=== PATIENT | male | born 1965 | race Caucasian/White ===

== ENCOUNTER → 2022-01-13 | Emergency (ER) | payer SELFPAY ==
[~2022-01-13] VITALS: Ht 188 cm; Wt 176.8 kg
[2022-01-13 18:28] VITALS: BP 106/82
--- NOTE | 2022-01-13 18:49 | PHYS DOC ---
Adult General Chief Complaint Chief Complaint: CHEST PAIN HPI HPI Pt is a 56 y/o male presenting to the ED via EMS c/o neck and abd pain. Pt reports throbbing in his neck onset about 1700 today that he has had before and believes it is due to his blood pressure being low. Pt also c/o abd pain due to hernia and SOB at baseline. Pt has hx of COPD, CHF, and recent respiratory infection. Pt states they recently changed his Lasix rx but that he has not been taking any of his meds for the last 2 days. Pt states that SNF staff told him they would not give him any of his meds unless he came to the ED. No further complaints at this time. (CECILIO RAMÍREZ MD) Review of Systems Review of Systems Constitutional: Denies fever or chills Eyes: Denies change in visual acuity, redness, or eye pain HENT: See HPI. Denies nasal congestion or sore throat Respiratory: See HPI. Denies cough Cardiovascular: No additional information not addressed in HPI GI: See HPI. Denies nausea, vomiting, bloody stools or diarrhea : Denies dysuria or hematuria Musculoskeletal: Denies back pain or joint pain Integument: Denies rash or skin lesions Neurologic: Denies headache, focal weakness or sensory changes All other systems were reviewed and found to be within normal limits, except as documented in this note. (CECILIO RAMÍREZ MD) Allergies Allergies Allergies Coded Allergies Type Severity Reaction Last Updated Verified No Known Drug Allergies 01/13/22 No (CECILIO RAMÍREZ MD) Physical Exam Physical Exam Constitutional: Morbidly obese, well nourished, no acute distress, non-toxic appearance. HENT: Normocephalic, atraumatic, bilateral external ears normal, oropharynx moist, no oral exudates, nose normal. Eyes: PERRLA, EOMI, conjunctiva normal, no discharge. Neck: Normal range of motion, no tenderness, supple, no stridor. Cardiovascular: Sinus tachycardia, no murmur Lungs & Thorax: Expiratory wheezes and rhonchi. Abdomen: Morbidly obese. Ventral hernia. Bowel sounds normal, soft, no tenderness. Skin: Warm, dry, no erythema, no rash. Back: No tenderness, no CVA tenderness. Extremities: 3+ edema BLE. No tenderness, no cyanosis, no clubbing, ROM intact, Neurologic: Alert and oriented X 3, normal motor function, normal sensory function, no focal deficits noted. Psychologic: Affect normal, judgement normal, mood normal. (CECILIO RAMÍREZ MD) EKG EKG [] (CECILIO RAMÍREZ MD) Radiology/Procedures Radiology/Procedures [] (CECILIO RAMÍREZ MD) Heart Score C/O Chest Pain: No Risk Factors: Risk Factors: DM, Current or recent (<one month) smoker, HTN, HLP, family history of CAD, obesity. Risk Scores: Risk Factors: DM, Current or recent (<one month) smoker, HTN, HLP, family history of CAD, obesity. (CECILIO RAMÍREZ MD) Course & Med Decision Making Course & Med Decision Making Pertinent Labs and Imaging studies reviewed. (See chart for details) Portions of this note were transcribed by dilcia Llanos. I, Dr. Ramírez, personally performed the history, physical exam and medical decision making; and confirmed the accuracy of the information in the transcribed note. 1843: The pt was seen and evaluated and the H&P obtained. The results of the physical exam were discussed with the pt. Pulse Oximetry Interpretation: O2 Saturation: 100% Oxygen Delivery: Room Air Interpretation: No hypoxia at this time Rhythm Strip Interpretation: Sinus tachycardia Ventricular Rate: 108 1900: Pt care was transferred to Dr. Elias pending lab and imaging results. Reviewed pts presentation and all results and findings up to this point with Dr. Elias. Pt was in stable condition upon transfer of care. MDM: Pt is a 56 y/o male presenting to the ED via EMS c/o neck and abd pain. Pt reports throbbing in his neck that he has had before and believes it is due to his blood pressure being low. Pt also c/o abd pain due to hernia. Pt has hx of COPD, CHF, and recent respiratory infection. Pt states they recently changed his Lasix rx but that he has not been taking any of his meds for the last 2 days. Pt states that SNF staff told him they would not give him any of his meds unless he came to the ED. No further complaints at this time. (CECILIO RAMÍREZ MD) Course & Med Decision Making Patient care handed off to me at checkout, however patient left AMA before I had a chance to go and and evaluate him. Nursing staff gave him risks including significant illness, increasing pain, worsening symptoms, disability and . Patient verbalized understanding of these per nurse and decided to leave anyway. (GREY ELIAS MD) Departure Departure: Impression: Primary Impression: Chest pain Additional Impression: Dyspnea Disposition: 30 STILL A PATIENT Condition: GUARDED Problem Qualifiers CECILIO RAMÍREZ MD Jan 13, 2022 18:49 GREY ELIAS MD Jan 13, 2022 22:41
[2022-01-13 19:42] LABS: BASO % 1 % (0-3); CALCIUM 7.8 mg/dL (8.5-10.1); CREATININE 0.9 mg/dL (0.7-1.3); EOS # 0.1 x10^3/uL (0.0-0.7); EOS % 3 % (0-3); GFR 87.3; HEMATOCRIT 26.7 % (39.0-53.0); HEMOGLOBIN 9.1 g/dL (13.0-17.5); LYMPH # 0.8 x10^3/uL (1.0-4.8); LYMPH % 21 % (24-48); MEAN CORPUSCULAR HEMOGLOBIN 37 pg (25-35); MEAN CORPUSCULAR HGB CONC 34 g/dL (31-37); MEAN CORPUSCULAR VOLUME 109 fL (79-100); MONO # 0.6 x10^3/uL (0.0-1.1); MONO % 17 % (0-9); NEUT # 2.1 x10^3uL (1.8-7.7); NEUT % 59 % (31-73); PLATELET COUNT 79 x10^3/uL (140-400); POTASSIUM 4.3 mmol/L (3.5-5.1); RED BLOOD COUNT 2.44 x10^6/uL (4.30-5.70); RED CELL DISTRIBUTION WIDTH 16.2 % (11.5-14.5); WHITE BLOOD COUNT 3.7 x10^3/uL (4.0-11.0)
--- NOTE | 2022-01-13 19:50 | EKG ---
[address] [address] Test Date: 2022-01-13 Test Time: 18:31:13 Pat Name: LEAH BLANDON Department: Room: Gender: M Transportation Maintenance Specialist: : 1965 Requested By: CECILIO CHACON Order Number: [id number] Reading MD: Jose Miguel Diego Measurements Intervals [place] Rate: 107 P: 49 LA: 186 QRS: 51 QRSD: 84 T: 43 QT: 322 QTc: 435 Interpretive Statements SINUS TACHYCARDIA Electronically Signed On 01-14-2022 14:55:40 CDT by Jose Miguel Diego
[2022-01-13 19:52] LABS: CLARITY,URINE TURBID; COLOR,URINE AMBER; GLUCOSE,URINE NEG (NEG)
[2022-01-13 19:53] LABS: BACTERIA,URINE MOD /HPF (0-FEW); NITRITE,URINE POS (NEG); RBC,URINE RARE /HPF (0-2); SQUAMOUS EPITHELIAL CELL,UR FEW /LPF; UROBILINOGEN,URINE 0.2 mg/dL (0.2 mg/dL)
[2022-01-13 19:54] LABS: AMORPHOUS SEDIMENT,UR PRESENT /HPF
[2022-01-13 19:55] LABS: ALBUMIN 1.9 g/dL (3.4-5.0); ALBUMIN/GLOBULIN RATIO 0.4 (1.0-1.7); TOTAL BILIRUBIN 1.4 mg/dL (0.2-1.0); TOTAL PROTEIN 6.7 g/dL (6.4-8.2)
== END | disposition still patient (30) ==
LOC: ER 18:17
DX: R07.9 Chest pain, unspecified (principal); R06.00 Dyspnea, unspecified; M54.2 Cervicalgia; R10.9 Unspecified abdominal pain; J44.9 Chronic obstructive pulmonary disease, unspecified; I50.9 Heart failure, unspecified; E66.01 Morbid (severe) obesity due to excess calories; Z68.43 Body mass index [BMI] 50.0-59.9, adult
CPT/HCPCS: 36415; 80053; 81001; 83880; 84484; 85025; 87077; 87086; 87186; 93005; 99284

== ENCOUNTER 2022-02-25 13:30 | Emergency (ER) | payer OTHER ==
[~2022-02-25] VITALS: Ht 190.5 cm; Wt 182.4 kg
[~2022-02-25 13:30] MED LIST: ACET650S19 PO; ALBU2.5V8 IH; ASPI-630 PO; CALC-660 PO; DICL100G28 TP; FURO80TA72 PO; GUAI-519 PO; IPRA3AMP29 NEB; LACT10SO2 PO; LACT10SO26 PO; LORA0.5T21 PO; OXYC5TAB2 PO; PANT40TA6 PO; POTA500T5 PO; RIFA550T4 PO; SPIR100T4 PO; TORS100T3 PO
--- NOTE | 2022-02-25 13:57 | PHYS DOC ---
Past History Additional Past Medical Histor: CHF. cirrhosis of liver. Past Surgical History: No Surgical History Alcohol Use: None Adult General Chief Complaint Chief Complaint: CHEST PAIN HPI HPI Patient presents via EMS with complaint of chest pain. Patient reports pain to his anterior chest much worse with deep breathing and coughing. Patient reports he just got out of [facility] after prolonged admission there over the last 3+ weeks. Patient states he was admitted for congestive heart failure and diuresed over many days. Patient states he did have some level of chest pain while he was inpatient but states is much worse today. On arrival the patient is requesting Dilaudid for this pain. Patient reports feeling short of breath, denies diaphoresis, no palpitations. Review of Systems Review of Systems Constitutional: Denies fever or chills [] Eyes: Denies change in visual acuity, redness, or eye pain [] HENT: Denies nasal congestion or sore throat [] Respiratory: Denies cough positive shortness of breath Cardiovascular: Chest pain, no palpitations no diaphoresis GI: Denies abdominal pain, nausea, vomiting, bloody stools or diarrhea [] : Denies dysuria or hematuria [] Musculoskeletal: Denies back pain or joint pain [] Integument: Denies rash or skin lesions [] Neurologic: Denies headache, focal weakness or sensory changes [] Endocrine: Denies polyuria or polydipsia [] All other systems were reviewed and found to be within normal limits, except as documented in this note. Current Medications Current Medications Current Medications Medications (Trade) Dose Ordered Sig/Francisca Start Time Stop Time Status Last Admin Dose Admin Morphine Sulfate (Morphine 4mg Syringe) 4 mg PRN Q15MIN PRN 02/25/22 14:00 02/26/22 13:59 UNV Allergies Allergies Allergies Coded Allergies Type Severity Reaction Last Updated Verified quetiapine Allergy Unknown 01/19/22 Yes Physical Exam Physical Exam Constitutional: Well developed, well nourished, no acute distress, non-toxic appearance. [] HENT: Normocephalic, atraumatic, bilateral external ears normal, oropharynx moist, no oral exudates, nose normal. [] Eyes: PERRLA, EOMI, conjunctiva normal, no discharge. [] Neck: Normal range of motion, no tenderness, supple, no stridor. [] Cardiovascular:Heart rate regular rhythm, no murmur [] Lungs & Thorax: Bilateral breath sounds clear to auscultation [] Abdomen: Bowel sounds normal, soft, no tenderness, no masses, no pulsatile hadley s. [] Skin: Warm, dry, no erythema, no rash. [] Back: No tenderness, no CVA tenderness. [] Extremities: No tenderness, no cyanosis, no clubbing, ROM intact, no edema. [] Neurologic: Alert and oriented X 3, normal motor function, normal sensory function, no focal deficits noted. [] Psychologic: Affect normal, judgement normal, mood normal. [] EKG EKG [] ECC physician read, normal sinus rhythm, normal NC interval, none widened QRS, no ST changes Radiology/Procedures Radiology/Procedures [] Heart Score C/O Chest Pain: Yes HEART Score for Chest Pain: HEART Score for Chest Pain Response (Comments) Value History Slighlty/Non-Suspicious 0 ECG Normal 0 Age >45 - < 65 1 Risk Factors >3 Risk Factors or Hx CAD 2 Troponin < Normal Limit 0 Total 3 Risk Factors: Risk Factors: DM, Current or recent (<one month) smoker, HTN, HLP, family history of CAD, obesity. Risk Scores: Risk Factors: DM, Current or recent (<one month) smoker, HTN, HLP, family history of CAD, obesity. Course & Med Decision Making Course & Med Decision Making Patient will get full labs and work-up in the emergency department, initial EKG with no specific ST changes. Pain is somewhat reproducible in the anterior c hest wall. We will attempt to get records from [facility] for recent admission and evaluation. Laboratory Tests Test 02/25/22 14:00 02/25/22 14:50 White Blood Count 3.0 x10^3/uL (4.0-11.0) L Red Blood Count 2.20 x10^6/uL (4.30-5.70) L Hemoglobin 8.3 g/dL (13.0-17.5) L Hematocrit 24.6 % (39.0-53.0) L Mean Corpuscular Volume 112 fL (79-100) H Mean Corpuscular Hemoglobin 38 pg (25-35) H Mean Corpuscular Hemoglobin Concent 34 g/dL (31-37) Red Cell Distribution Width 19.7 % (11.5-14.5) H Platelet Count 83 x10^3/uL (140-400) L Neutrophils (%) (Auto) 76 % (31-73) H Lymphocytes (%) (Auto) 12 % (24-48) L Monocytes (%) (Auto) 9 % (0-9) Eosinophils (%) (Auto) 3 % (0-3) Basophils (%) (Auto) 1 % (0-3) Neutrophils # (Auto) 2.3 x10^3uL (1.8-7.7) Lymphocytes # (Auto) 0.4 x10^3/uL (1.0-4.8) L Monocytes # (Auto) 0.3 x10^3/uL (0.0-1.1) Eosinophils # (Auto) 0.1 x10^3/uL (0.0-0.7) Basophils # (Auto) 0.0 x10^3/uL (0.0-0.2) Troponin I High Sensitivity 12 ng/L (4-75) Sodium Level 135 mmol/L (136-145) L Potassium Level 4.1 mmol/L (3.5-5.1) Chloride Level 98 mmol/L (98-107) Carbon Dioxide Level 34 mmol/L (21-32) H Anion Gap 3 (6-14) L Blood Urea Nitrogen 22 mg/dL (8-26) Creatinine 1.0 mg/dL (0.7-1.3) Estimated GFR (Cockcroft-Gault) 77.3 BUN/Creatinine Ratio 22 (6-20) H Glucose Level 99 mg/dL (70-99) Calcium Level 8.8 mg/dL (8.5-10.1) Total Bilirubin 1.8 mg/dL (0.2-1.0) H Direct Bilirubin 0.8 mg/dL (0.0-0.2) H Aspartate Amino Transf (AST/SGOT) 62 U/L (15-37) H Alanine Aminotransferase (ALT/SGPT) 36 U/L (16-63) Alkaline Phosphatase 134 U/L (46-116) H Total Protein 7.6 g/dL (6.4-8.2) Albumin 2.5 g/dL (3.4-5.0) L Albumin/Globulin Ratio 0.5 (1.0-1.7) L Lipase 88 U/L (73-393) Active Scripts Medications Dose Route/Sig Max Daily Dose Days Date Category Lactulose 10 Gm/15 Ml Solution 30 Ml PO QID 01/22/22 Rx Torsemide 100 Mg Tablet 1 Tab PO DAILY 30 01/22/22 Rx Ventolin Hfa Inhaler (Albuterol Sulfate) 18 Gm Hfa.aer.ad 1 Puff IH PRN Q4HRS PRN 01/19/22 Reported Spironolactone 100 Mg Tablet 1 Tab PO DAILY 01/19/22 Reported Xifaxan (Rifaximin) 550 Mg Tablet 1 Tab PO BID 10 01/19/22 Reported Potassium Gluconate 500 Mg Tablet 595 Mg PO BID 01/19/22 Reported Pantoprazole Sodium 40 Mg Tablet.dr 1 Tab PO DAILY 01/19/22 Reported Oyster Shell 500Mg-Vit D3 5Mcg (Calcium Carbonate/Vitamin D3) 1 Each Tablet 1 Tab PO BID 30 01/19/22 Reported Oxycodone HCl 5 Mg Tablet 10 Mg PO PRN Q4HRS PRN 01/19/22 Reported Duoneb 0.5-3(2.5) Mg/3 Ml (Albuterol/Ipratropium) 3 Ml Ampul.neb 3 Ml NEB QID 01/19/22 Reported Ofelia-Tussin (Guaifenesin) 100 Mg/5 Ml Liquid 300 Mg PO PRN Q4HRS PRN 01/19/22 Reported Diclofenac Sodium 100 Gm Gel..gram. 1 Jeremy TP PRN Q6HRS PRN 21 01/19/22 Reported Ativan (Lorazepam) 0.5 Mg Tablet 0.5 Mg PO PRN BID PRN 01/19/22 Reported Aspirin 81 Mg Tab.chew 81 Mg PO DAILY 01/19/22 Reported Vital Signs Date Time Temp Pulse Resp B/P (MAP) Pulse Ox O2 Delivery O2 Flow Rate FiO2 02/25/22 14:17 98.2 88 20 94/58 (70) 93 Nasal Cannula 4.0 Vital Signs Date Time Temp Pulse Resp B/P (MAP) Pulse Ox O2 Delivery O2 Flow Rate FiO2 02/25/22 15:20 83 18 106/52 (70) 96 4.0 02/25/22 14:17 98.2 88 20 94/58 (70) 93 Nasal Cannula 4.0 Vital Signs Date Time Temp Pulse Resp B/P (MAP) Pulse Ox O2 Delivery O2 Flow Rate FiO2 02/25/22 15:20 83 18 106/52 (70) 96 4.0 02/25/22 14:17 98.2 Nasal Cannula Laboratory Tests Test 02/25/22 14:00 02/25/22 14:50 White Blood Count 3.0 x10^3/uL Red Blood Count 2.20 x10^6/uL Hemoglobin 8.3 g/dL Hematocrit 24.6 % Mean Corpuscular Volume 112 fL Mean Corpuscular Hemoglobin 38 pg Mean Corpuscular Hemoglobin Concent 34 g/dL Red Cell Distribution Width 19.7 % Platelet Count 83 x10^3/uL Neutrophils (%) (Auto) 76 % Lymphocytes (%) (Auto) 12 % Monocytes (%) (Auto) 9 % Eosinophils (%) (Auto) 3 % Basophils (%) (Auto) 1 % Neutrophils # (Auto) 2.3 x10^3uL Lymphocytes # (Auto) 0.4 x10^3/uL Monocytes # (Auto) 0.3 x10^3/uL Eosinophils # (Auto) 0.1 x10^3/uL Basophils # (Auto) 0.0 x10^3/uL Troponin I High Sensitivity 12 ng/L Sodium Level 135 mmol/L Potassium Level 4.1 mmol/L Chloride Level 98 mmol/L Carbon Dioxide Level 34 mmol/L Anion Gap 3 Blood Urea Nitrogen 22 mg/dL Creatinine 1.0 mg/dL Estimated GFR (Cockcroft-Gault) 77.3 BUN/Creatinine Ratio 22 Glucose Level 99 mg/dL Calcium Level 8.8 mg/dL Total Bilirubin 1.8 mg/dL Direct Bilirubin 0.8 mg/dL Aspartate Amino Transf (AST/SGOT) 62 U/L Alanine Aminotransferase (ALT/SGPT) 36 U/L Alkaline Phosphatase 134 U/L Total Protein 7.6 g/dL Albumin 2.5 g/dL Albumin/Globulin Ratio 0.5 Lipase 88 U/L Current Medications Medications (Trade) Dose Ordered Sig/Francisca Route PRN Reason Start Time Stop Time Status Last Admin Dose Admin Morphine Sulfate (Morphine 4mg Syringe) 4 mg PRN Q15MIN PRN IV/SQ PAIN GREATER THAN 3/10 02/25/22 14:00 02/26/22 13:59 02/25/22 15:31 1615-patient with work-up in the emergency department relatively reassuring. Patient with EKG with no ST changes. Patient chest x-ray with some evidence of ongoing pulmonary edema. Recent prolonged admission with significant diuresis. Patient at baseline oxygen needs while in the emergency department. Patient with initial cardiac enzymes not elevated. Patient encouraged for multiple sets of cardiac enzymes, but patient states he feels at his baseline and is anxious for discharge home. Patient states his issue today was that he has prescriptions had not been sent to his home yet from the [facility], and the pain medications he was prescribed at discharge from [facility] was not available. Patient counseled that we have not been able to fully rule out any ongoing issue as we do not have serial cardiac enzymes. Patient overall states he feels much better and would just like to be discharged home. Patient will be discharged home with close outpatient follow-up. Patient does have follow-up with cardiology already scheduled after admission at . Return precautions discussed Dragon Disclaimer Dragon Disclaimer This electronic medical record was generated, in whole or in part, using a voice recognition dictation system. Departure Departure: Impression: Primary Impression: Chest pain Additional Impression: Dyspnea Disposition: 01 HOME / SELF CARE / HOMELESS Condition: STABLE Referrals: ALBERTO MICHAEL MD (PCP) Patient Instructions: Chest Pain (Nonspecific) Problem Qualifiers OLMAN DANIELS MD February 25, 2022 13:57
[2022-02-25] MEDS: MORPHINE SULFATE 4 MG/ML DISP.SYRIN. IV/SQ PRN ×2 (14:17→15:31)
[2022-02-25 14:27] LABS: BASO % 1 % (0-3); EOS # 0.1 x10^3/uL (0.0-0.7); EOS % 3 % (0-3); HEMATOCRIT 24.6 % (39.0-53.0); HEMOGLOBIN 8.3 g/dL (13.0-17.5); LYMPH # 0.4 x10^3/uL (1.0-4.8); LYMPH % 12 % (24-48); MEAN CORPUSCULAR HEMOGLOBIN 38 pg (25-35); MEAN CORPUSCULAR HGB CONC 34 g/dL (31-37); MEAN CORPUSCULAR VOLUME 112 fL (79-100); MONO # 0.3 x10^3/uL (0.0-1.1); MONO % 9 % (0-9); NEUT # 2.3 x10^3uL (1.8-7.7); NEUT % 76 % (31-73); PLATELET COUNT 83 x10^3/uL (140-400); RED CELL DISTRIBUTION WIDTH 19.7 % (11.5-14.5)
--- NOTE | 2022-02-25 14:56 | RAD ---
EXAM: XR CHEST 1V 02/25/2022 2:33 PM CLINICAL INDICATION: Chest pain COMPARISON: Chest radiograph 01/19/2022 TECHNIQUE: AP view of the chest FINDINGS: There is a right chest wall dual-lead pacemaker. The cardiac silhouette is prominent, acce ntuated by technique. The lungs are hypoexpanded. Bilateral airspace opacities, greatest in the perih ilar regions, have mildly increased. No pleural effusion or pneumothorax. There are multiple right ri b reconstruction plates. IMPRESSION: Increased bilateral airspace opacities, which could be due to pulmonary edema or multipl e pneumonia. Electronically signed by: Puja Felipe MD (02/25/2022 2:54 PM) [id number]
[2022-02-25 15:19] LABS: CALCIUM 8.8 mg/dL (8.5-10.1); GFR 77.3; POTASSIUM 4.1 mmol/L (3.5-5.1)
[2022-02-25 15:25] LABS: ALBUMIN 2.5 g/dL (3.4-5.0); ALBUMIN/GLOBULIN RATIO 0.5 (1.0-1.7); DIRECT BILIRUBIN 0.8 mg/dL (0.0-0.2); TOTAL BILIRUBIN 1.8 mg/dL (0.2-1.0); TOTAL PROTEIN 7.6 g/dL (6.4-8.2)
[2022-02-25 16:00] VITALS: BP 94/58
--- NOTE | 2022-02-25 21:37 | EKG ---
[address] [address] Test Date: 2022-02-25 Test Time: 13:36:26 Pat Name: LEAH BLANDON Department: Room: Gender: M Insurance Special Agent: : 1965 Requested By: OLMAN DANIELS Order Number: [id number] Reading MD: Measurements Intervals [place] Rate: 89 P: 56 FL: 172 QRS: 37 QRSD: 88 T: 43 QT: 364 QTc: 444 Interpretive Statements SINUS RHYTHM NORMAL ECG RI6.02 No previous ECG available for comparison
== END 2022-02-25 16:40 | disposition home or self-care (01) ==
LOC: ER 13:31
DX: R07.89 Other chest pain (principal); R06.02 Shortness of breath; I50.9 Heart failure, unspecified; Z88.8 Allergy status to other drugs, medicaments and biological substances
CPT/HCPCS: 36415; 71045; 80053; 82248; 83690; 84484; 85025; 93005; 96374; 96376; 99285; J2270; 99284

== ENCOUNTER 2022-03-04 08:12 | Emergency (ER) | payer OTHER ==
[~2022-03-04] VITALS: Ht 190.5 cm; Wt 182.4 kg
--- NOTE | 2022-03-04 08:22 | PHYS DOC ---
Past History Additional Past Medical Histor: CHF. cirrhosis of liver. Past Surgical History: No Surgical History Alcohol Use: None General Adult EDM: Chief Complaint: CONSTIPATION HPI: HPI: Patient is a 56-year-old male coming in from nursing facility for abdominal pain and constipation. Patient states he has not had a bowel movement for the past 4 days. States he has taken several stool softeners and laxatives without producing any stool. Patient states his abdominal pain is generalized. Has had some nausea and, but no vomiting. Review of Systems: Review of Systems: All other systems within normal limits except for as noted in the HPI Allergies: Allergies: Allergies Coded Allergies Type Severity Reaction Last Updated Verified quetiapine Allergy Unknown 02/25/22 Yes Physical Exam: PE: Constitutional: Well developed, well nourished, no acute distress, non-toxic appearance. Elevated BMI. [] HENT: Normocephalic, atraumatic, bilateral external ears normal, nose normal. [] Eyes: PERRLA, conjunctiva normal, no discharge. [] Neck: No rigidity, supple, no stridor. [] Cardiovascular: Regular rate and rhythm, brisk cap refill [] Lungs & Thorax: Non labored symmetric respirations, no tachypnea or respiratory distress [] Abdomen: Soft, nondistended, soft ventral hernia. Skin: Warm, dry, no erythema, no rash. [] Back: Unremarkable Extremities: No deformities, range of motion grossly intact, no lower extremity edema [] Neurologic: Alert and oriented X 3, no focal deficits noted. [] Psychologic: Affect normal, judgement normal, mood normal. [] EKG: EKG: [] Radiology/Procedures: Radiology/Procedures: [address] [address] IMAGING REPORT Signed PATIENT: LEAH BLANDON ACCOUNT: [id number] : 1965 LOCATION: ER AGE: 56 SEX: M EXAM STATUS: REG ER ORD. PHYSICIAN: SRIDEVI MATHIS MD REASON: constipation PROCEDURE: CT ABDOMEN PELVIS WO CONTRAST CT ABDOMEN+PELVIS WO dated 03/04/2022 8:28 AM Indication:Reason: constipation / Spl. Instructions: / History: Comparison: CT 09/04/2017. Technique: Helical noncontrast images were performed. Sagittal and coronal reconstructions were obtained. One or more of the following individualized dose reduction techniques were utilized for this examination: 1. Automated exposure control 2. Adjustment of the mA and/or kV according to patient size 3. Use of iterative reconstruction technique Findings: There are areas of atelectasis lung bases. There is bilateral gynecomastia. Fixation plates are again shown along the right lateral ribs. The liver appears decreased in size since the previous CT. There is suggestion of a vague area of low attenuation posteriorly in the right lobe measuring about 2.3 cm. No other focal parenchymal abnormality is seen, although evaluation of the solid organs is limited without IV contrast. Spleen is enlarged, measuring about 15.4 cm craniocaudally. The kidneys show no apparent mass or obstruction. The adrenal glands are not enlarged. Pancreas appears normal. A vena cava filter is again seen. There is no apparent adenopathy. There is now a small amount of ascites in the upper abdomen. Anterior abdominal wall hernias are again shown. There is moderate stool through the colon. There is no evidence of bowel obstruction. Some of the hernias contain ascites, but no bowel loops are seen. There is also diffuse subcutaneous edema. Images through the pelvis show no apparent abnormality of the distal ureters or bladder. No pelvic or inguinal adenopathy is seen. There is moderate stool through the colon without evidence of bowel obstruction. There are prominent veins in the anterior abdominal wall. The left inferior rectus muscle shows asymmetric thickening, and there is a rounded area measuring 1.5 cm of increased attenuation possibly indicating a region of hemorrhage. IMPRESSION: Since the prior CT, there has been development of ascites in the abdomen and pelvis. The liver appears smaller and may be cirrhotic. There is also splenomegaly. There is a possible right lobe liver lesion. Further evaluation with liver protocol CT or MRI would be useful. There is suggestion of some thickening of the left rectus muscle inferiorly with a rounded area of higher attenuation internally possibly indicating hemorrhage. A retrievable IVC filter is noted, and the referring physician is encouraged to ensure that a management plan for this filter is in place. If no such plan is present, referral to an interventional clinician on a non-emergent basis should be considered. The [employer] appropriateness criteria for placement and management of IVC filters can be found on the web at: www.acr.org/quality-safety/appropriateness-criteria/interventional Electronically signed by: Saeid Ramos Jr., MD (03/04/2022 9:09 AM) [facility] DICTATED AND SIGNED BY: SAEID RAMOS Jr, MD DATE: 03/04/22858 CC: SRIDEVI MATHIS MD; ALBERTO MICHAEL MD ~ [] Heart Score: C/O Chest Pain: No Risk Factors: Risk Factors: DM, Current or recent (<one month) smoker, HTN, HLP, family history of CAD, obesity. Risk Scores: Score 0 - 3: 2.5% MACE over next 6 weeks - Discharge Home Score 4 - 6: 20.3% MACE over next 6 weeks - Admit for Clinical Observation Score 7 - 10: 72.7% MACE over next 6 weeks - Early Invasive Strategies Course & Med Decision Making: Course & Med Decision Making Pertinent Labs and Imaging studies reviewed. (See chart for details) Several abnormal lab results that are at patient's baseline and consistent with his history of cirrhosis. Patient given suppository and enema with a subsequent bowel movement, patient stating he feels much better and is requesting discharge back to his facility. [] Dragon Disclaimer: Dragon Disclaimer: This electronic medical record was generated, in whole or in part, using a voice recognition dictation system. Departure Departure: Impression: Primary Impression: Constipation Disposition: 01 HOME / SELF CARE / HOMELESS Condition: IMPROVED Referrals: ALBERTO MICHAEL MD (PCP) Patient Instructions: Constipation, Adult SRIDEVI MATHIS MD March 04, 2022 08:22
--- NOTE | 2022-03-04 09:12 | RAD ---
CT ABDOMEN+PELVIS WO dated 03/04/2022 8:28 AM Indication:Reason: constipation / Spl. Instructions: / History: Comparison: CT 09/04/2017. Technique: Helical noncontrast images were performed. Sagittal and coronal reconstructions were obtai brice. One or more of the following individualized dose reduction techniques were utilized for this examinat ion: 1. Automated exposure control 2. Adjustment of the mA and/or kV according to patient size 3. Use of iterative reconstruction technique Findings: There are areas of atelectasis lung bases. There is bilateral gynecomastia. Fixation plates are again shown along the right lateral ribs. The liver appears decreased in size since the previous CT. There is suggestion of a vague area of low attenuation posteriorly in the right lobe measuring about 2.3 c m. No other focal parenchymal abnormality is seen, although evaluation of the solid organs is limited without IV contrast. Spleen is enlarged, measuring about 15.4 cm craniocaudally. The kidneys show no apparent mass or obstruction. The adrenal glands are not enlarged. Pancreas appears normal. A vena c peterson filter is again seen. There is no apparent adenopathy. There is now a small amount of ascites in the upper abdomen. Anterior abdominal wall hernias are again shown. There is moderate stool through t he colon. There is no evidence of bowel obstruction. Some of the hernias contain ascites, but no katie l loops are seen. There is also diffuse subcutaneous edema. Images through the pelvis show no apparent abnormality of the distal ureters or bladder. No pelvic or inguinal adenopathy is seen. There is moderate stool through the colon without evidence of bowel obs truction. There are prominent veins in the anterior abdominal wall. The left inferior rectus muscle s hows asymmetric thickening, and there is a rounded area measuring 1.5 cm of increased attenuation pos sibly indicating a region of hemorrhage. IMPRESSION: Since the prior CT, there has been development of ascites in the abdomen and pelvis. The liver appear s smaller and may be cirrhotic. There is also splenomegaly. There is a possible right lobe liver lesi on. Further evaluation with liver protocol CT or MRI would be useful. There is suggestion of some thickening of the left rectus muscle inferiorly with a rounded area of hi gher attenuation internally possibly indicating hemorrhage. A retrievable IVC filter is noted, and the referring physician is encouraged to ensure that a managem ent plan for this filter is in place. If no such plan is present, referral to an interventional clini leslee on a non-emergent basis should be considered. The [employer] appropriateness criteria for placement and management of IVC filters can be found on the web at: www.acr.org/quality-safety/appropriateness-criteria/interventional Electronically signed by: Jose Miguel Ramos Jr., MD (03/04/2022 9:09 AM) [facility]
[2022-03-04 09:15] VITALS: BP 119/66
[2022-03-04] MEDS ORDERED: BISACODYL 10 MG SUPP.RECT PR ONE (09:30)
[2022-03-04] MEDS ORDERED: SODIUM PHOSPHATES 19/7GM 133 ML ENEMA. PR ONE (09:30)
[2022-03-04 09:51] LABS: BASO % 0 % (0-3); EOS # 0.1 x10^3/uL (0.0-0.7); EOS % 6 % (0-3); HEMATOCRIT 23.8 % (39.0-53.0); HEMOGLOBIN 8.2 g/dL (13.0-17.5); LYMPH # 0.4 x10^3/uL (1.0-4.8); LYMPH % 15 % (24-48); MEAN CORPUSCULAR HEMOGLOBIN 38 pg (25-35); MEAN CORPUSCULAR HGB CONC 35 g/dL (31-37); MEAN CORPUSCULAR VOLUME 110 fL (79-100); MONO # 0.4 x10^3/uL (0.0-1.1); MONO % 14 % (0-9); NEUT # 1.7 x10^3uL (1.8-7.7); NEUT % 65 % (31-73); PLATELET COUNT 83 x10^3/uL (140-400); RED BLOOD COUNT 2.16 x10^6/uL (4.30-5.70); RED CELL DISTRIBUTION WIDTH 18.6 % (11.5-14.5); WHITE BLOOD COUNT 2.7 x10^3/uL (4.0-11.0)
[2022-03-04 09:55] LABS: CALCIUM 8.1 mg/dL (8.5-10.1); CREATININE 0.9 mg/dL (0.7-1.3); GFR 87.3; POTASSIUM 3.7 mmol/L (3.5-5.1)
[2022-03-04 09:59] LABS: BACTERIA,URINE MOD /HPF (0-FEW); CLARITY,URINE CLEAR; COLOR,URINE YELLOW; GLUCOSE,URINE NEG (NEG); HYALINE CASTS, URINE OCC /HPF; NITRITE,URINE NEG (NEG); RBC,URINE OCC /HPF (0-2); SQUAMOUS EPITHELIAL CELL,UR MOD /LPF; UROBILINOGEN,URINE 0.2 mg/dL (0.2 mg/dL); YEAST,URINE PRESENT /HPF
[2022-03-04 10:01] LABS: ALBUMIN 2.5 g/dL (3.4-5.0); ALBUMIN/GLOBULIN RATIO 0.5 (1.0-1.7); MAGNESIUM 2.1 mg/dL (1.8-2.4); PHOSPHORUS 2.7 mg/dL (2.6-4.7); TOTAL BILIRUBIN 2.1 mg/dL (0.2-1.0); TOTAL PROTEIN 7.5 g/dL (6.4-8.2)
[2022-03-04 11:20] LABS: ANISOCYTOSIS SLIGHT
[2022-03-04 11:21] LABS: PLT ESTIMATE DECREASED (ADEQUATE)
== END 2022-03-04 11:12 | disposition home or self-care (01) ==
LOC: ER 08:12
DX: K59.00 Constipation, unspecified (principal); R10.84 Generalized abdominal pain; R11.0 Nausea; I50.9 Heart failure, unspecified; Z88.8 Allergy status to other drugs, medicaments and biological substances
CPT/HCPCS: 36415; 74176; 80053; 81001; 83605; 83690; 83735; 84100; 85025; 87077; 87086; 87186; 99284

== ENCOUNTER 2022-03-19 16:56 | Emergency (ER) | payer OTHER ==
[~2022-03-19] VITALS: Ht 190.5 cm; Wt 182.4 kg
[2022-03-19] MEDS ORDERED: MORPHINE SULFATE 4 MG/ML DISP.SYRIN. IV ONE ×2 (17:45→19:30)
[2022-03-19 18:34] LABS: BASO % 0 % (0-3); EOS # 0.1 x10^3/uL (0.0-0.7); EOS % 2 % (0-3); HEMATOCRIT 30.1 % (39.0-53.0); HEMOGLOBIN 10.4 g/dL (13.0-17.5); LYMPH # 0.6 x10^3/uL (1.0-4.8); LYMPH % 13 % (24-48); MEAN CORPUSCULAR HEMOGLOBIN 37 pg (25-35); MEAN CORPUSCULAR HGB CONC 35 g/dL (31-37); MEAN CORPUSCULAR VOLUME 108 fL (79-100); MONO # 0.4 x10^3/uL (0.0-1.1); MONO % 10 % (0-9); NEUT # 3.1 x10^3uL (1.8-7.7); NEUT % 75 % (31-73); PLATELET COUNT 74 x10^3/uL (140-400); RED BLOOD COUNT 2.78 x10^6/uL (4.30-5.70); RED CELL DISTRIBUTION WIDTH 16.1 % (11.5-14.5); WHITE BLOOD COUNT 4.2 x10^3/uL (4.0-11.0)
[2022-03-19 18:44] LABS: CLARITY,URINE HAZY; COLOR,URINE YELLOW; GLUCOSE,URINE NEG (NEG)
[2022-03-19 18:45] LABS: BACTERIA,URINE MOD /HPF (0-FEW); NITRITE,URINE NEG (NEG); SQUAMOUS EPITHELIAL CELL,UR FEW /LPF; WBC,URINE TNTC /HPF (0-4)
[2022-03-19 19:55] LABS: CALCIUM 8.2 mg/dL (8.5-10.1); GFR 77.3; POTASSIUM 4.1 mmol/L (3.5-5.1)
[2022-03-19 20:02] LABS: ALBUMIN 2.2 g/dL (3.4-5.0); ALBUMIN/GLOBULIN RATIO 0.4 (1.0-1.7); TOTAL BILIRUBIN 2.1 mg/dL (0.2-1.0); TOTAL PROTEIN 7.7 g/dL (6.4-8.2)
--- NOTE | 2022-03-19 20:09 | PHYS DOC ---
Past History Additional Past Medical Histor: CHF. cirrhosis of liver. Past Surgical History: No Surgical History Alcohol Use: None General Adult EDM: Chief Complaint: MANIC BEHAVIOR HPI: HPI: Patient is a 56-year-old male presents with chronic low back pain and anxiety. Patient was brought in by EMS after calling 911 because staff was not bringing his meds quickly enough. Patient has a history of liver disease, hep C and is currently a hospice patient. Patient states he takes p.o. morphine and Ativan for pain and anxiety. Patient was calm and acting appropriate while in the ER. Patient denies chest pain, shortness of breath, fever. Review of Systems: Review of Systems: ROS At least 10 ROS systems have been reviewed and are negative except as documented in the HPI. General: Negative except as outlined in HPI above. Skin: Negative except as outlined in HPI above. HEENT: Negative except as outlined in HPI above. Neck: Negative except as outlined in HPI above. Respiratory: Negative except as outlined in HPI above.. Cardiovascular: Negative except as outlined in HPI above. Abdomen: Negative except as outlined in HPI above. : Negative except as outlined in HPI above. Back/MSK: Negative except as outlined in HPI above. Neuro: Negative except as outlined in HPI above. Psych: Negative except as outlined in HPI above. Current Medications: Current Meds: Current Medications Medications (Trade) Dose Ordered Sig/Francisca Start Time Stop Time Status Last Admin Dose Admin Morphine Sulfate (Morphine 4mg Syringe) 4 mg 1X ONCE 03/19/22 19:30 03/19/22 19:31 DC 03/19/22 19:45 4 MG Allergies: Allergies: Allergies Coded Allergies Type Severity Reaction Last Updated Verified quetiapine Allergy Unknown 03/19/22 Yes Physical Exam: PE: Constitutional: Well developed, well nourished, no acute distress, non-toxic appearance. [] HENT: Normocephalic, atraumatic, bilateral external ears normal, oropharynx moist, no oral exudates, nose normal. [] Eyes: PERRLA, EOMI, conjunctiva normal, no discharge. [] Neck: Normal range of motion, no tenderness, supple, no stridor. [] Cardiovascular:Heart rate regular rhythm, no murmur [] Lungs & Thorax: Bilateral breath sounds clear to auscultation [] Abdomen: Bowel sounds normal, soft, no tenderness, no masses, no pulsatile masses. [] Skin: Warm, dry, no erythema, no rash. [] Back: Chronic lower back tenderness, no CVA tenderness. [] Extremities: No tenderness, no cyanosis, no clubbing, ROM intact, no edema. [] Neurologic: Alert and oriented X 3, normal motor function, normal sensory function, no focal deficits noted. [] Psychologic: Affect normal, judgement normal, anxious mood Current Patient Data: Labs: Laboratory Tests Test 03/19/22 17:56 03/19/22 18:11 White Blood Count 4.2 x10^3/uL (4.0-11.0) Red Blood Count 2.78 x10^6/uL (4.30-5.70) L Hemoglobin 10.4 g/dL (13.0-17.5) L Hematocrit 30.1 % (39.0-53.0) L Mean Corpuscular Volume 108 fL (79-100) H Mean Corpuscular Hemoglobin 37 pg (25-35) H Mean Corpuscular Hemoglobin Concent 35 g/dL (31-37) Red Cell Distribution Width 16.1 % (11.5-14.5) H Platelet Count 74 x10^3/uL (140-400) L Neutrophils (%) (Auto) 75 % (31-73) H Lymphocytes (%) (Auto) 13 % (24-48) L Monocytes (%) (Auto) 10 % (0-9) H Eosinophils (%) (Auto) 2 % (0-3) Basophils (%) (Auto) 0 % (0-3) Neutrophils # (Auto) 3.1 x10^3uL (1.8-7.7) Lymphocytes # (Auto) 0.6 x10^3/uL (1.0-4.8) L Monocytes # (Auto) 0.4 x10^3/uL (0.0-1.1) Eosinophils # (Auto) 0.1 x10^3/uL (0.0-0.7) Basophils # (Auto) 0.0 x10^3/uL (0.0-0.2) Lactic Acid Level 1.8 mmol/L (0.4-2.0) Ammonia 59 mcmol/L (11-34) H Urine Collection Type Clean catch Urine Color Yellow Urine Clarity Hazy Urine pH 8.5 Urine Specific Cutler 1.015 Urine Protein Neg (NEG-TRACE) Urine Glucose (UA) Neg mg/dL (NEG) Urine Ketones (Stick) Neg mg/dL (NEG) Urine Blood Trace (NEG) Urine Nitrite Neg (NEG) Urine Bilirubin Neg (NEG) Urine Urobilinogen Dipstick 1.0 mg/dL (0.2 mg/dL) Urine Leukocyte Esterase Large (NEG) Urine RBC 3-5 /HPF (0-2) Urine WBC Tntc /HPF (0-4) Urine Squamous Epithelial Cells Few /LPF Urine Bacteria Mod /HPF (0-FEW) Vital Signs: Vital Signs Date Time Temp Pulse Resp B/P (MAP) Pulse Ox O2 Delivery O2 Flow Rate FiO2 03/19/22 19:45 18 100 Room Air 03/19/22 18:15 85 112/57 (75) 2.0 03/19/22 17:16 98.3 EKG: EKG: [] Radiology/Procedures: Radiology/Procedures: [] Heart Score: C/O Chest Pain: No Risk Factors: Risk Factors: DM, Current or recent (<one month) smoker, HTN, HLP, family history of CAD, obesity. Risk Scores: Score 0 - 3: 2.5% MACE over next 6 weeks - Discharge Home Score 4 - 6: 20.3% MACE over next 6 weeks - Admit for Clinical Observation Score 7 - 10: 72.7% MACE over next 6 weeks - Early Invasive Strategies Course & Med Decision Making: Course & Med Decision Making Pertinent Labs and Imaging studies reviewed. (See chart for details) [] 56-year-old presents with chronic low back pain and anxiety. Patient called in 911 due to medical staff not bringing his medications quickly enough. Patient is alert and oriented and calm on arrival to the emergency room. Patient is requesting morphine for his chronic low back pain. Patient is currently on hospice for liver failure.Patient's pain was treated with morphine while in the ER. RBC, H&H are both decreased but similar to past results. Ammonia of 59. Lactic, 1.8. Patient's reporting lower back pain. Patient given second dose of morphine. Patient's pain and anxiety have improved.Patient is requesting to be discharged back to facility. Brittany Disclaimer: Brittany Disclaimer: This electronic medical record was generated, in whole or in part, using a voice recognition dictation system. Departure Departure: Impression: Primary Impression: Chronic back pain Qualified Codes: M54.50 - Low back pain, unspecified; G89.29 - Other chronic pain Additional Impression: Anxiety Disposition: 01 HOME / SELF CARE / HOMELESS Condition: STABLE Referrals: ALBERTO MICHAEL MD (PCP) Patient Instructions: Back Pain, Adult Additional Instructions: EMERGENCY DEPARTMENT GENERAL DISCHARGE INSTRUCTIONS Thank you for coming to [facility] (ED) today and trusting us with you care. We trust that you had a positivie experience in our Emergency Department. If you wish to speak to the department management, you may call the director at [phone]. YOUR FOLLOW UP INSTRUCTIONS ARE FOLLOWS: 1. Do you have a private Doctor? If you do not have a private doctor, please ask for a resource list of physicians or clinics that may be able to assist you with follow up care. 2. The Emergency Physician has interpreted your x-rays. The X-Ray specialist will also review them. If there is a change in the findings, you will be notified in 48 hours when at all possible. 3. A lab test or culture has been done, your results will be reviewed and you will be notified if you need a change in treatment. ADDITIONAL INSTRUCTIONS AND INFORMATION: 1. Your care today has been supervised by a physician who is specially trained in emergency care. Many problems require more than one evaluation for a complete diagnosis and treatment. We recommend that you schedule your follow up appointment as recommended to ensure complete treatment of you illness or injury. If you are unable to obtain follow up care and continue to have a problem, or if your condition worsens, we recommend that you return to the ED. 2. We are not able to safely determine your condition over the phone nor are we able to give sound medical advice over the phone. For these safety reasons, if you call for medical advice we will ask you to come to the ED for further evaluation. 3. If you have any questions regarding these discharge instructions please call the ED at [phone]. SAFETY INFORMATION: In the interest of safety, wellness, and injury prevention; we encourage you to wear your sealbelt, if you smoke; quite smoking, and we encourage family to use a protective helmet for bicycling and other sporting events that present an increased risk for head injury. IF YOUR SYMPTOMS WORSEN OR NEW SYMPTOMS DEVELOP, OR YOU HAVE CONCERNS ABOUT YOUR CONDITION; OR IF YOUR CONDITION WORSENS WHILE YOU ARE WAITING FOR YOUR FOLLOW UP APPOINTMENT; EITHER CONTACT YOUR PRIMARY CARE DOCTOR, THE PHYSICIAN WHOSE NAME AND NUMBER YOU WERE GIVEN, OR RETURN TO THE ED IMMEDIATELY. STACEY MURCIA APRN March 19, 2022 20:09
[2022-03-19 20:30] VITALS: BP 116/60
== END 2022-03-19 20:35 | disposition home or self-care (01) ==
LOC: ER 16:56
DX: G89.29 Other chronic pain (principal); M54.59 Other low back pain; F41.9 Anxiety disorder, unspecified; I50.9 Heart failure, unspecified; Z88.8 Allergy status to other drugs, medicaments and biological substances
CPT/HCPCS: 36415; 80053; 81001; 82140; 83605; 83690; 85025; 87086; 93005; 96374; 96376; 99284; J2270